=== PATIENT | male | born 1950 | race Caucasian/White ===

== ENCOUNTER 2021-12-08 17:22 | Inpatient (IN) | payer MEDICARE ==
[~2021-12-08] VITALS: Ht 188 cm; Wt 99.8 kg
[2021-12-08] MEDS ORDERED: LABETALOL HCL VIAL 20 MG/4 ML VIAL IV ONE (18:15)
[2021-12-08] MEDS ORDERED: ACETAMINOPHEN 325MG TABLET PO ONE (18:30)
[2021-12-08] MEDS ORDERED: LABETALOL 5MG/ML SYR 20 MG/4 ML SYRINGE IV NR (18:30)
[2021-12-08 18:42] LABS: BASOPHILS % 0.7 % (0.0-2.0); EOSINOPHILS % 1.4 % (0.0-5.0); HEMATOCRIT. 46.4 % (42.0-52.0); HEMOGLOBIN. 15.7 g/dL (14.0-18.0); LYMPHOCYTES % 16.9 % (20.0-50.0); MEAN CORPUSCULAR HEMOGLOBIN 28.4 pg (28.0-32.0); MEAN CORPUSCULAR VOLUME 84.3 fL (80.0-94.0); MONOCYTES % 5.8 % (2.0-8.0); NEUTROPHILS % 75.2 % (40.0-76.0); PLATELET 145 x1000/uL (130-400); RED BLOOD CELL COUNT 5.51 mill/uL (4.7-6.1); RED CELL DISTRIBUTION WIDTH 14.5 % (11.6-14.6)
[2021-12-08 18:51] LABS: CHLORIDE 111 mEq/L (98-107)
[2021-12-08] MEDS ORDERED: HYDRALAZINE 20MG/ML VIAL IV ONE (23:15)
[2021-12-08] MEDS: HYDRALAZINE 20MG/ML VIAL IV SCH (23:32)
[2021-12-09] MEDS ORDERED: HYDRALAZINE 20MG/ML VIAL IV SCH
[2021-12-09] MEDS: HYDRALAZINE 20MG/ML VIAL IV SCH ×3 (05:47→17:18)
[2021-12-09] MEDS ORDERED: NITROGLYCERIN 0.4MG TABLET SL SL PRN (07:00)
[2021-12-09] MEDS ORDERED: IPRATROPIUM/ALBUTEROL 0.5-3(2.5)MG/3ML NEB NEB PRN (07:15)
[2021-12-09] MEDS ORDERED: GUAIFENESIN 200MG/10ML SUGAR FREE UDC PO PRN (07:15)
[2021-12-09] MEDS ORDERED: MAGNESIUM/ALUMINUM HYDROXIDE/SIMETHICONE 30ML UDC PO PRN (07:15)
[2021-12-09] MEDS ORDERED: ONDANSETRON HCL 4MG/2ML INJ IV PRN (07:15)
[2021-12-09] MEDS ORDERED: ACETAMINOPHEN 325MG TABLET PO PRN ×2 (07:15)
[2021-12-09] MEDS ORDERED: DOCUSATE SODIUM 100MG CAPSULE PO PRN (07:15)
[2021-12-09] MEDS: CLONIDINE 0.1MG TABLET PO PRN (07:33)
[2021-12-09] MEDS: AMLODIPINE 10MG TABLET PO SCH ×2 (07:34→09:00)
[2021-12-09] MEDS: NITROGLYCERIN OINT 1GM/INCH UDPKT TD SCH ×3 (08:10→21:14)
[2021-12-09] MEDS: ASPIRIN 325MG EC TABLET PO SCH (08:14)
[2021-12-09] MEDS: ENOXAPARIN 40MG/0.4ML SYR SUBCUT SCH (08:14)
[2021-12-09] MEDS: FAMOTIDINE 20MG TABLET PO SCH ×2 (08:15→21:13)
[2021-12-09] MEDS: LISINOPRIL 20MG TABLET PO SCH ×2 (08:15→21:13)
[2021-12-09 09:08] LABS: HDL CHOLESTEROL 50 mg/dL (40-59)
[2021-12-09 09:12] LABS: ETHANOL BLOOD < 10 mg/dL; LDL CHOLESTEROL 105 mg/dL (5-100); T4 FREE 0.98 ng/dL (0.76-1.46); TOTAL IRON BINDING CAPACITY 301 ug/dL (250-450)
[2021-12-09 10:43] VITALS: BP 144/98
[2021-12-09 12:00] VITALS: BP 108/58
[2021-12-09] MEDS: KETOROLAC 15MG/ML VIAL IV PRN (12:28)
[2021-12-09] MEDS: HYDRALAZINE HCL 50MG TABLET PO SCH ×2 (14:00→21:13)
[2021-12-09 16:11] VITALS: BP 111/71
[2021-12-09 17:14] LABS: *AMPHETAMINES SCREEN URINE NEGATIVE (NEGATIVE); *BARBITURATES SCREEN URINE NEGATIVE (NEGATIVE); *BENZODIAZEPINES SCREEN URINE NEGATIVE (NEGATIVE); *COCAINE SCREEN URINE NEGATIVE (NEGATIVE); CANNABINOID URINE SCREEN NEGATIVE (NEGATIVE); METHADONE URINE SCREEN NEGATIVE (NEGATIVE); OPIATES URINE SCREEN NEGATIVE (NEGATIVE); PHENCYCLIDINE URINE SCREEN NEGATIVE (NEGATIVE)
[2021-12-09 17:52] LABS: CREATINE KINASE MB FRACTION 2.8 ng/mL (0.5-3.6)
[2021-12-09 20:00] VITALS: BP 126/55
[2021-12-09] MEDS ORDERED: ZOLPIDEM TARTRATE 5MG TABLET PO PRN (21:00)
[2021-12-10] VITALS: BP 127/79
[2021-12-10 00:25] LABS: CREATINE KINASE MB FRACTION 3.3 ng/mL (0.5-3.6)
[2021-12-10 04:00] VITALS: BP 146/89
[2021-12-10] MEDS: NITROGLYCERIN OINT 1GM/INCH UDPKT TD SCH ×3 (06:01→21:49)
[2021-12-10] MEDS: HYDRALAZINE HCL 50MG TABLET PO SCH ×3 (06:01→21:49)
[2021-12-10 06:35] LABS: BASOPHILS % 0.5 % (0.0-2.0); HEMATOCRIT. 43.6 % (42.0-52.0); HEMOGLOBIN. 14.7 g/dL (14.0-18.0); LYMPHOCYTES % 13.5 % (20.0-50.0); MEAN CORPUSCULAR HEMOGLOBIN 28.2 pg (28.0-32.0); MEAN CORPUSCULAR VOLUME 83.8 fL (80.0-94.0); MEAN PLATELET VOLUME 8.2 fl (7.4-10.4); MONOCYTES % 8.9 % (2.0-8.0); NEUTROPHILS % 76.1 % (40.0-76.0); PLATELET 139 x1000/uL (130-400); RED CELL DISTRIBUTION WIDTH 14.7 % (11.6-14.6)
[2021-12-10 07:11] LABS: CHLORIDE 110 mEq/L (98-107)
[2021-12-10 07:19] LABS: PHOSPHORUS 3.5 mg/dL (2.5-4.9)
[2021-12-10 08:00] VITALS: BP 165/94
[2021-12-10] MEDS: KETOROLAC 15MG/ML VIAL IV PRN ×3 (09:10→21:50)
[2021-12-10] MEDS: ENOXAPARIN 40MG/0.4ML SYR SUBCUT SCH (09:10)
[2021-12-10] MEDS: ASPIRIN 325MG EC TABLET PO SCH (09:11)
[2021-12-10] MEDS: LISINOPRIL 20MG TABLET PO SCH ×2 (09:11→20:39)
[2021-12-10] MEDS: AMLODIPINE 10MG TABLET PO SCH (09:11)
[2021-12-10] MEDS: FAMOTIDINE 20MG TABLET PO SCH ×2 (09:11→20:39)
[2021-12-10 11:31] VITALS: BP 120/69
[2021-12-10 16:01] VITALS: BP 113/64
[2021-12-10 20:00] VITALS: BP 177/109
[2021-12-10] MEDS: CLONIDINE 0.1MG TABLET PO PRN (20:39)
[2021-12-11] VITALS (7 sets, daily range): BP systolic 99–159; BP diastolic 54–106
[2021-12-11] MEDS: HYDRALAZINE HCL 50MG TABLET PO SCH ×3 (04:53→22:00)
[2021-12-11] MEDS: NITROGLYCERIN OINT 1GM/INCH UDPKT TD SCH ×3 (04:53→22:47)
[2021-12-11] MEDS: CLONIDINE 0.1MG TABLET PO PRN (05:50)
[2021-12-11] MEDS: LISINOPRIL 20MG TABLET PO SCH (09:23)
[2021-12-11] MEDS: ASPIRIN 325MG EC TABLET PO SCH (09:23)
[2021-12-11] MEDS: AMLODIPINE 10MG TABLET PO SCH (09:23)
[2021-12-11] MEDS: FAMOTIDINE 20MG TABLET PO SCH (09:23)
[2021-12-11] MEDS: ENOXAPARIN 40MG/0.4ML SYR SUBCUT SCH (09:26)
[2021-12-12] VITALS: BP 138/84
[2021-12-12] MEDS: LISINOPRIL 20MG TABLET PO SCH ×2 (02:40→09:00)
[2021-12-12 04:00] VITALS: BP 143/76
[2021-12-12] MEDS: NITROGLYCERIN OINT 1GM/INCH UDPKT TD SCH ×2 (06:00→15:01)
[2021-12-12] MEDS: HYDRALAZINE HCL 50MG TABLET PO SCH ×2 (06:00→15:01)
[2021-12-12 08:02] VITALS: BP 140/87
[2021-12-12] MEDS ORDERED: FAMOTIDINE 20MG TABLET PO SCH (09:00)
[2021-12-12] MEDS: AMLODIPINE 10MG TABLET PO SCH (09:01)
[2021-12-12] MEDS: ENOXAPARIN 40MG/0.4ML SYR SUBCUT SCH (09:01)
[2021-12-12] MEDS: ASPIRIN 325MG EC TABLET PO SCH (09:03)
[2021-12-12 12:00] VITALS: BP 127/64
[2021-12-13 04:50] LABS: VITAMIN B12 SERUM 335 pg/mL (211-911)
== END 2021-12-12 16:48 | DRG 91 ==
LOC: ER 17:22 → 6WST 12-09 04:45 → SUPCPDRO 12-09 07:08 → 6WST 12-10 12:28
PROVIDERS: ADMIT Internal Medicine; ATTEND Internal Medicine
DX: G92.8 Other toxic encephalopathy (principal); N17.0 Acute kidney failure with tubular necrosis; I16.1 Hypertensive emergency; N18.9 Chronic kidney disease, unspecified; I12.9 Hypertensive chronic kidney disease with stage 1 through stage 4 chronic kidney disease, or unspecified chronic kidney disease; K21.9 Gastro-esophageal reflux disease without esophagitis
CPT/HCPCS: 36415; 71045; 76770; 80053; 80061; 80305; 80320; 82550; 82553; 82607; 82746; 83036; 83540; 83550; 83735; 83880; 84100; 84439; 84443; 84484; 85025; 93005; 93306; 93971; 97162; 97166; 99285; C1893; J0360; J1650; J1885; J3490; G0480

== ENCOUNTER 2022-04-15 09:49 | Inpatient (IN) | payer MEDICARE, OTHER, MEDICAID ==
[~2022-04-15] VITALS: Ht 165.1 cm; Wt 90.7 kg
[2022-04-15 11:01] LABS: HEMATOCRIT. 46.7 % (42.0-52.0); HEMOGLOBIN. 15.4 g/dL (14.0-18.0); MEAN CORPUSCULAR VOLUME 85.2 fL (80.0-94.0); PLATELET 177 x1000/uL (130-400); RED BLOOD CELL COUNT 5.48 mill/uL (4.7-6.1); RED CELL DISTRIBUTION WIDTH 15.5 % (11.6-14.6)
[2022-04-15 11:05] LABS: CHLORIDE 120 mEq/L (98-107)
[2022-04-15] MEDS ORDERED: SODIUM CHLORIDE 0.9% 1,000 ML IV ONE (11:30)
[2022-04-15 11:38] LABS: PLATELET ESTIMATE NORMAL
[2022-04-15 11:52] LABS: CLARITY URINE CLEAR (CLEAR); COLOR URINE YELLOW (YELLOW); KETONES URINE TRACE (NEGATIVE); LEUKOCYTE ESTERASE URINE 1+ (NEGATIVE); NITRITE URINE NEGATIVE (NEGATIVE); OCCULT BLOOD URINE 2+ (NEGATIVE); PROTEIN URINE TRACE (NEGATIVE); SPECIFIC GRAVITY URINE 1.014 (1.005-1.030)
[2022-04-15] MEDS ORDERED: GUAIFENESIN 200MG/10ML SUGAR FREE UDC PO PRN (16:00)
[2022-04-15] MEDS ORDERED: ONDANSETRON HCL 4MG/2ML INJ IV PRN (16:00)
[2022-04-15] MEDS ORDERED: ACETAMINOPHEN 325MG TABLET PO PRN (16:00)
[2022-04-15] MEDS ORDERED: CLONIDINE 0.1MG TABLET PO PRN (16:00)
[2022-04-15] MEDS ORDERED: IPRATROPIUM/ALBUTEROL 0.5-3(2.5)MG/3ML NEB NEB PRN (16:00)
[2022-04-15] MEDS ORDERED: LORAZEPAM 2MG/ML CPJ IV PRN (16:00)
[2022-04-15] MEDS ORDERED: DEXT 5%/0.45% NACL 500ML 500 ML IV ONE (17:45)
[2022-04-15] MEDS ORDERED: DEXTROSE 50% WATER 50ML SYRINGE IV PRN (18:15)
[2022-04-15 18:18] LABS: BG BASE EXCESS -11.6 mmol/L (-2.0-2.0); BG CARBOXYHEMOGLOBIN 0.8 % (0.5-1.5); BG DEOXYHEMOGLOBIN 3.5 % (0.0-5.0); BG FRACTION INSPIRED OXYGEN 21; BG HCO3 ACT 11.8 mmol/L (22.0-26.0); BG METHEMOGLOBIN 0.2 % (0.0-1.5); BG OXYGEN SATURATION 96.5 % (92.0-98.5); BG OXYHEMOGLOBIN 95.5 % (94.0-97.0); BG PCO2 22.4 mmHg (35.0-45.0); BG PH 7.339 (7.350-7.450); BG PO2 84.7 mmHg (75.0-100.0); BG SAMPLE SITE RIGHT BRACHIAL; BG TOTAL HEMOGLOBIN 15.7 g/dL (12.0-18.0); BG VENT MODE ROOM AIR
[2022-04-15] MEDS ORDERED: PIPERACILLIN/TAZ 3.375G PREMIX 50 ML IV NR (18:30)
[2022-04-15 19:58] LABS: PROSTRATE SPECIFIC AG TOTAL 6.96 ng/mL (0.0-4.0)
[2022-04-15 20:10] LABS: HEPATITIS B SURFACE ANTIGEN NEGATIVE; VITAMIN B12 SERUM 697 pg/mL (211-911)
[2022-04-15] MEDS: BLOOD SUGAR DIAGNOSTIC STRIP TEST SCH ×2 (20:14→22:18)
[2022-04-15] MEDS: INSULIN LISPRO 100 UNITS/ML SUBCUT SCH ×2 (20:14→22:19)
[2022-04-15] MEDS: HEPARIN 5000 UNITS/ML VIAL SUBCUT SCH (22:20)
[2022-04-15 23:12] LABS: CREATINE KINASE 1683 IU/L (39-308)
[2022-04-15] MEDS: LORAZEPAM 2MG/ML CPJ IV PRN (23:27)
[2022-04-16] MEDS ORDERED: DEXT 5%/0.45% NACL 1000ML IV SCH (03:15)
[2022-04-16] MEDS: LORAZEPAM 2MG/ML CPJ IV PRN (03:42)
[2022-04-16 04:25] VITALS: BP 149/83
[2022-04-16] MEDS: BLOOD SUGAR DIAGNOSTIC STRIP TEST SCH ×4 (06:02→20:39)
[2022-04-16 08:00] VITALS: BP 149/98
[2022-04-16] MEDS: HEPARIN 5000 UNITS/ML VIAL SUBCUT SCH ×2 (08:10→21:05)
[2022-04-16] MEDS: DEXT 5%/0.45% NACL 1000ML IV SCH ×3 (08:10→22:46)
[2022-04-16] MEDS: INSULIN LISPRO 100 UNITS/ML SUBCUT SCH ×4 (08:10→20:39)
[2022-04-16] MEDS: SODIUM BICARBONATE 650 MG TABLET PO SCH ×3 (08:11→17:00)
[2022-04-16] MEDS: TAMSULOSIN HCL 0.4MG SR CAPSULE PO SCH ×2 (08:11→09:00)
[2022-04-16 08:31] LABS: *AMPHETAMINES SCREEN URINE NEGATIVE (NEGATIVE); *BARBITURATES SCREEN URINE NEGATIVE (NEGATIVE); *BENZODIAZEPINES SCREEN URINE PRESUMTIVE POSITIVE (NEGATIVE); *COCAINE SCREEN URINE NEGATIVE (NEGATIVE); CANNABINOID URINE SCREEN NEGATIVE (NEGATIVE); METHADONE URINE SCREEN NEGATIVE (NEGATIVE); OPIATES URINE SCREEN PRESUMTIVE POSITIVE (NEGATIVE); PHENCYCLIDINE URINE SCREEN NEGATIVE (NEGATIVE)
[2022-04-16] MEDS ORDERED: PIPERACILLIN/TAZOBACTAM 3.375 G in DEXTROSE 5% WATER 50 ML IV SCH (09:00)
[2022-04-16 09:49] LABS: HEMATOCRIT. 45.6 % (42.0-52.0); MEAN CORPUSCULAR HEMOGLOBIN 27.8 pg (28.0-32.0); MEAN CORPUSCULAR VOLUME 84.3 fL (80.0-94.0); MEAN PLATELET VOLUME 9.2 fl (7.4-10.4); PLATELET 146 x1000/uL (130-400); RED BLOOD CELL COUNT 5.41 mill/uL (4.7-6.1); RED CELL DISTRIBUTION WIDTH 15.4 % (11.6-14.6)
[2022-04-16 09:56] LABS: CHLORIDE 127 mEq/L (98-107)
[2022-04-16 10:07] LABS: T4 FREE 0.91 ng/dL (0.76-1.46)
[2022-04-16 10:15] LABS: CREATINE KINASE 1501 IU/L (39-308)
[2022-04-16] MEDS: PIPERACILLIN/TAZOBACTAM 3.375 G in DEXTROSE 5% WATER 50 ML IV SCH ×2 (10:23→21:04)
[2022-04-16 12:00] VITALS: BP 129/78
[2022-04-16 13:07] LABS: PLATELET ESTIMATE NORMAL
[2022-04-16 16:00] VITALS: BP 142/103
[2022-04-16] MEDS ORDERED: IPRATROPIUM BROMIDE (0.02%) 0.5MG/2.5ML NEB HHN PRN (16:00)
[2022-04-16] MEDS ORDERED: ALBUTEROL (0.083%) 2.5MG/3ML NEB HHN PRN (16:00)
[2022-04-16 20:39] VITALS: BP 142/92
[2022-04-17 00:45] VITALS: BP 158/95
[2022-04-17] MEDS: LORAZEPAM 2MG/ML CPJ IV PRN (01:28)
[2022-04-17] MEDS: POTASSIUM CHLORIDE INJ 10 MEQ in DEXTROSE 5% WATER 1,000 ML IV SCH ×4 (01:45→23:27)
[2022-04-17] MEDS ORDERED: DEXT 5% WATER + KCL 20MEQ/L 1,000 ML IV SCH (01:45)
[2022-04-17] MEDS: HYDROCODONE/ACETAMINOPHEN 5/325MG TABLET PO PRN ×2 (02:34→09:55)
[2022-04-17 04:00] VITALS: BP 134/94
[2022-04-17 05:49] LABS: BASOPHILS % 0.5 % (0.0-2.0); EOSINOPHILS % 1.7 % (0.0-5.0); HEMOGLOBIN. 14.5 g/dL (14.0-18.0); LYMPHOCYTES % 8.8 % (20.0-50.0); MEAN CORPUSCULAR HEMOGLOBIN 28.2 pg (28.0-32.0); MEAN CORPUSCULAR VOLUME 87.3 fL (80.0-94.0); MEAN PLATELET VOLUME 9.4 fl (7.4-10.4); MONOCYTES % 9.1 % (2.0-8.0); NEUTROPHILS % 79.9 % (40.0-76.0); PLATELET 148 x1000/uL (130-400); RED BLOOD CELL COUNT 5.15 mill/uL (4.7-6.1); RED CELL DISTRIBUTION WIDTH 16.2 % (11.6-14.6)
[2022-04-17] MEDS: BLOOD SUGAR DIAGNOSTIC STRIP TEST SCH ×4 (06:40→20:46)
[2022-04-17] MEDS: INSULIN LISPRO 100 UNITS/ML SUBCUT SCH ×4 (07:25→20:46)
[2022-04-17 08:00] VITALS: BP 146/82
[2022-04-17 08:39] LABS: CHLORIDE 131 mEq/L (98-107)
[2022-04-17] MEDS: PIPERACILLIN/TAZOBACTAM 3.375 G in DEXTROSE 5% WATER 50 ML IV SCH ×2 (09:16→20:44)
[2022-04-17] MEDS: TAMSULOSIN HCL 0.4MG SR CAPSULE PO SCH (09:54)
[2022-04-17] MEDS: SODIUM BICARBONATE 650 MG TABLET PO SCH ×2 (09:54→17:31)
[2022-04-17] MEDS: HEPARIN 5000 UNITS/ML VIAL SUBCUT SCH ×2 (09:56→20:48)
[2022-04-17] MEDS ORDERED: MAGNESIUM 1 G PREMIX 100 ML IV ONE (10:30)
[2022-04-17 12:00] VITALS: BP 138/72
[2022-04-17] MEDS ORDERED: VANCOMYCIN 1500MG in DEXTROSE 5% WATER 250ML IV NR (12:00)
[2022-04-17 13:27] LABS: CREATINE KINASE 1650 IU/L (39-308)
[2022-04-17] MEDS: HALOPERIDOL LACTATE 5MG/ML VIAL IM SCH ×2 (14:19→20:46)
[2022-04-17] MEDS: ACETAMINOPHEN 325MG TABLET PO SCH ×2 (14:20→22:26)
[2022-04-17 16:00] VITALS: BP 135/89
[2022-04-17 20:00] VITALS: BP 147/75
[2022-04-18] VITALS: BP 121/77
[2022-04-18 04:00] VITALS: BP 115/77
[2022-04-18 05:45] LABS: CHLORIDE 127 mEq/L (98-107)
[2022-04-18 05:57] LABS: PHOSPHORUS 3.8 mg/dL (2.5-4.9)
[2022-04-18] MEDS: ACETAMINOPHEN 325MG TABLET PO SCH ×3 (06:00→21:43)
[2022-04-18 06:04] LABS: BASOPHILS % 0.6 % (0.0-2.0); EOSINOPHILS % 4.5 % (0.0-5.0); HEMATOCRIT. 43.5 % (42.0-52.0); HEMOGLOBIN. 14.4 g/dL (14.0-18.0); LYMPHOCYTES % 9.7 % (20.0-50.0); MEAN CORPUSCULAR HEMOGLOBIN 27.9 pg (28.0-32.0); MEAN CORPUSCULAR VOLUME 84.3 fL (80.0-94.0); MEAN PLATELET VOLUME 9.4 fl (7.4-10.4); MONOCYTES % 6.8 % (2.0-8.0); NEUTROPHILS % 78.4 % (40.0-76.0); PLATELET 119 x1000/uL (130-400); RED BLOOD CELL COUNT 5.16 mill/uL (4.7-6.1); RED CELL DISTRIBUTION WIDTH 15.7 % (11.6-14.6)
[2022-04-18] MEDS: POTASSIUM CHLORIDE INJ 10 MEQ in DEXTROSE 5% WATER 1,000 ML IV SCH ×3 (06:24→21:42)
[2022-04-18] MEDS: BLOOD SUGAR DIAGNOSTIC STRIP TEST SCH ×4 (06:26→21:00)
[2022-04-18 08:00] VITALS: BP 134/71
[2022-04-18] MEDS: HALOPERIDOL LACTATE 5MG/ML VIAL IM SCH (08:47)
[2022-04-18] MEDS: SODIUM BICARBONATE 650 MG TABLET PO SCH ×2 (08:48→18:23)
[2022-04-18] MEDS: HEPARIN 5000 UNITS/ML VIAL SUBCUT SCH ×2 (08:48→21:40)
[2022-04-18] MEDS: INSULIN LISPRO 100 UNITS/ML SUBCUT SCH ×4 (08:57→22:12)
[2022-04-18] MEDS: TAMSULOSIN HCL 0.4MG SR CAPSULE PO SCH (09:47)
[2022-04-18] MEDS: PIPERACILLIN/TAZOBACTAM 3.375 G in DEXTROSE 5% WATER 50 ML IV SCH ×2 (09:49→21:42)
[2022-04-18 12:00] VITALS: BP 104/62
[2022-04-18] MEDS ORDERED: TRAZ-251 PO (12:27)
[2022-04-18] MEDS ORDERED: GABA-529 PO (12:27)
[2022-04-18] MEDS ORDERED: HYDR-4135 PO (12:27)
[2022-04-18] MEDS ORDERED: QUET25TA36 PO (12:27)
[2022-04-18] MEDS ORDERED: LISI20TA31 PO (12:27)
[2022-04-18] MEDS ORDERED: TRAM50TA3 PO (12:27)
[2022-04-18] MEDS ORDERED: DOCU-138 PO (12:27)
[2022-04-18] MEDS ORDERED: AMLO10TA4 PO (12:27)
[2022-04-18] MEDS ORDERED: VANCOMYCIN 500MG PREMIX 100 ML IV NR (14:00)
[2022-04-18 14:09] LABS: MICROALBUMIN RANDOM URINE 24.4 ug/mL (Not Estab.)
[2022-04-18] MEDS ORDERED: NA PHOS,M-B/NA PHOS,DI-BA ENEMA 118ML PR NR (15:15)
[2022-04-18] MEDS ORDERED: HALOPERIDOL LACTATE 5MG/ML VIAL IM NR (15:15)
[2022-04-18] MEDS ORDERED: FUROSEMIDE 20MG/2ML VIAL IVP NR (18:45)
[2022-04-18 20:00] VITALS: BP 132/61
[2022-04-18] MEDS ORDERED: ASPIRIN 300MG SUPP PR NR (21:00)
[2022-04-18] MEDS ORDERED: HALOPERIDOL LACTATE 5MG/ML VIAL IM PRN (21:00)
[2022-04-18] MEDS: FAMOTIDINE 20MG TABLET PO SCH (21:43)
[2022-04-18] MEDS: ATORVASTATIN CALCIUM 40MG TABLET PO SCH (22:02)
[2022-04-18] MEDS ORDERED: THIAMINE HCL 100 MG in SODIUM CHLORIDE 0.9% 49 ML IV NR (23:00)
[2022-04-19] VITALS: BP 104/75
[2022-04-19] MEDS: POTASSIUM CHLORIDE INJ 10 MEQ in DEXTROSE 5% WATER 1,000 ML IV SCH ×2 (01:38→10:50)
[2022-04-19 04:00] VITALS: BP 113/76
[2022-04-19] MEDS: BLOOD SUGAR DIAGNOSTIC STRIP TEST SCH ×4 (05:37→21:07)
[2022-04-19] MEDS: ACETAMINOPHEN 325MG TABLET PO SCH (05:37)
[2022-04-19 06:51] LABS: BASOPHILS % 0.6 % (0.0-2.0); EOSINOPHILS % 6.3 % (0.0-5.0); HEMATOCRIT. 52.5 % (42.0-52.0); HEMOGLOBIN. 16.6 g/dL (14.0-18.0); LYMPHOCYTES % 9.8 % (20.0-50.0); MEAN CORPUSCULAR HEMOGLOBIN 27.4 pg (28.0-32.0); MEAN CORPUSCULAR VOLUME 86.4 fL (80.0-94.0); MEAN PLATELET VOLUME 9.7 fl (7.4-10.4); MONOCYTES % 5.7 % (2.0-8.0); NEUTROPHILS % 77.6 % (40.0-76.0); PLATELET 79 x1000/uL (130-400); RED BLOOD CELL COUNT 6.07 mill/uL (4.7-6.1); RED CELL DISTRIBUTION WIDTH 15.8 % (11.6-14.6)
[2022-04-19 08:00] VITALS: BP 140/80
[2022-04-19] MEDS: INSULIN LISPRO 100 UNITS/ML SUBCUT SCH ×4 (08:10→21:00)
[2022-04-19] MEDS: SODIUM BICARBONATE 650 MG TABLET PO SCH ×2 (10:50→17:52)
[2022-04-19] MEDS: PIPERACILLIN/TAZOBACTAM 3.375 G in DEXTROSE 5% WATER 50 ML IV SCH (10:50)
[2022-04-19] MEDS: TAMSULOSIN HCL 0.4MG SR CAPSULE PO SCH (11:00)
[2022-04-19 12:00] VITALS: BP 146/83
[2022-04-19 16:00] VITALS: BP 96/62
[2022-04-19 20:00] VITALS: BP 135/64
[2022-04-19] MEDS ORDERED: FUROSEMIDE 20MG/2ML VIAL IVP NR (21:00)
[2022-04-19] MEDS: ATORVASTATIN CALCIUM 40MG TABLET PO SCH (21:04)
[2022-04-19] MEDS: FAMOTIDINE 20MG TABLET PO SCH (21:05)
[2022-04-19] MEDS: HEPARIN 5000 UNITS/ML VIAL SUBCUT SCH (21:06)
[2022-04-19] MEDS: ACETAMINOPHEN 325MG TABLET PO PRN (23:29)
[2022-04-20] VITALS: BP 137/78
[2022-04-20 04:00] VITALS: BP 130/78
[2022-04-20 06:08] LABS: HEMATOCRIT 40.5 % (42.0-52.0); HEMOGLOBIN 13.6 g/dL (14.0-18.0); MEAN CORPUSCULAR HEMOGLOBIN 28.7 pg (28.0-32.0); MEAN CORPUSCULAR VOLUME 85.3 fL (80.0-94.0); RED BLOOD CELL COUNT 4.75 mill/uL (4.7-6.1); RED CELL DISTRIBUTION WIDTH 15.3 % (11.6-14.6)
[2022-04-20] MEDS: BLOOD SUGAR DIAGNOSTIC STRIP TEST SCH ×4 (06:16→21:03)
[2022-04-20 06:42] LABS: PHOSPHORUS 3.8 mg/dL (2.5-4.9)
[2022-04-20 07:26] LABS: PLATELET 102 x1000/uL (130-400)
[2022-04-20] MEDS: INSULIN LISPRO 100 UNITS/ML SUBCUT SCH ×4 (08:10→21:03)
[2022-04-20] MEDS: POTASSIUM CHLORIDE INJ 10 MEQ in DEXTROSE 5% WATER 1,000 ML IV SCH ×4 (09:27→20:59)
[2022-04-20] MEDS: TAMSULOSIN HCL 0.4MG SR CAPSULE PO SCH (09:28)
[2022-04-20] MEDS: SODIUM BICARBONATE 650 MG TABLET PO SCH ×2 (09:28→17:53)
[2022-04-20] MEDS: HEPARIN 5000 UNITS/ML VIAL SUBCUT SCH ×2 (09:29→21:01)
[2022-04-20 20:00] VITALS: BP 113/69
[2022-04-20] MEDS: FAMOTIDINE 20MG TABLET PO SCH (21:00)
[2022-04-20] MEDS: ATORVASTATIN CALCIUM 40MG TABLET PO SCH (21:00)
[2022-04-20] MEDS ORDERED: FUROSEMIDE 20MG/2ML VIAL IVP NR (22:00)
[2022-04-21] VITALS: BP 112/75
[2022-04-21] MEDS: POTASSIUM CHLORIDE INJ 10 MEQ in DEXTROSE 5% WATER 1,000 ML IV SCH ×2 (02:25→23:08)
[2022-04-21 04:00] VITALS: BP 139/85
[2022-04-21 06:07] LABS: CHLORIDE 121 mEq/L (98-107)
[2022-04-21 06:08] LABS: HEMATOCRIT 43.6 % (42.0-52.0); HEMOGLOBIN 14.4 g/dL (14.0-18.0); MEAN CORPUSCULAR HEMOGLOBIN 28.2 pg (28.0-32.0); MEAN CORPUSCULAR VOLUME 85.2 fL (80.0-94.0); PLATELET 108 x1000/uL (130-400); RED BLOOD CELL COUNT 5.11 mill/uL (4.7-6.1); RED CELL DISTRIBUTION WIDTH 15.5 % (11.6-14.6)
[2022-04-21] MEDS: BLOOD SUGAR DIAGNOSTIC STRIP TEST SCH ×4 (07:45→21:31)
[2022-04-21 08:00] VITALS: BP 111/78
[2022-04-21] MEDS: TAMSULOSIN HCL 0.4MG SR CAPSULE PO SCH (09:00)
[2022-04-21] MEDS: HEPARIN 5000 UNITS/ML VIAL SUBCUT SCH ×2 (09:00→21:39)
[2022-04-21] MEDS: SODIUM BICARBONATE 650 MG TABLET PO SCH ×3 (09:40→17:46)
[2022-04-21] MEDS: INSULIN LISPRO 100 UNITS/ML SUBCUT SCH ×4 (09:47→21:00)
[2022-04-21 12:00] VITALS: BP 99/54
[2022-04-21 16:00] VITALS: BP 138/66
[2022-04-21 20:00] VITALS: BP 107/74
[2022-04-21] MEDS: DOXAZOSIN MESYLATE 2MG TABLET PO SCH (21:00)
[2022-04-21] MEDS: FAMOTIDINE 20MG TABLET PO SCH (21:00)
[2022-04-21] MEDS: ATORVASTATIN CALCIUM 40MG TABLET PO SCH (21:00)
[2022-04-22] VITALS: BP 109/52
[2022-04-22 04:00] VITALS: BP 107/53
[2022-04-22] MEDS: BLOOD SUGAR DIAGNOSTIC STRIP TEST SCH ×4 (05:36→20:31)
[2022-04-22] MEDS: INSULIN LISPRO 100 UNITS/ML SUBCUT SCH ×4 (07:53→20:31)
[2022-04-22 08:00] VITALS: BP 145/77
[2022-04-22] MEDS: HEPARIN 5000 UNITS/ML VIAL SUBCUT SCH ×2 (08:49→21:05)
[2022-04-22] MEDS: POTASSIUM CHLORIDE INJ 10 MEQ in DEXTROSE 5% WATER 1,000 ML IV SCH ×2 (08:49→18:32)
[2022-04-22 08:53] LABS: HEMATOCRIT 40.4 % (42.0-52.0); HEMOGLOBIN 13.6 g/dL (14.0-18.0); MEAN CORPUSCULAR HEMOGLOBIN 28.1 pg (28.0-32.0); MEAN CORPUSCULAR VOLUME 83.6 fL (80.0-94.0); PLATELET 109 x1000/uL (130-400); RED BLOOD CELL COUNT 4.83 mill/uL (4.7-6.1); RED CELL DISTRIBUTION WIDTH 14.9 % (11.6-14.6)
[2022-04-22] MEDS: ASPIRIN 81MG TABLET PO SCH ×2 (08:59→09:00)
[2022-04-22] MEDS: SODIUM BICARBONATE 650 MG TABLET PO SCH ×3 (08:59→17:00)
[2022-04-22] MEDS ORDERED: LIDOCAINE HCL/PF 1% 2ML VIAL ONE (09:12)
[2022-04-22 09:16] LABS: CHLORIDE 117 mEq/L (98-107)
[2022-04-22 09:49] LABS: BG BASE EXCESS -6.4 mmol/L (-2.0-2.0); BG CARBOXYHEMOGLOBIN 0.7 % (0.5-1.5); BG DEOXYHEMOGLOBIN 7.9 % (0.0-5.0); BG HCO3 ACT 15.3 mmol/L (22.0-26.0); BG METHEMOGLOBIN 0.7 % (0.0-1.5); BG OXYHEMOGLOBIN 90.7 % (94.0-97.0); BG PCO2 22.2 mmHg (35.0-45.0); BG PH 7.457 (7.350-7.450); BG PO2 59.2 mmHg (75.0-100.0); BG SAMPLE SITE RIGHT RADIAL; BG TOTAL HEMOGLOBIN 13.9 g/dL (12.0-18.0); BG VENT MODE ROOM AIR
[2022-04-22 12:00] VITALS: BP 129/84
[2022-04-22] MEDS: PIPERACILLIN/TAZOBACTAM 3.375 G in DEXTROSE 5% WATER 50 ML IV SCH ×2 (13:24→21:04)
[2022-04-22 16:00] VITALS: BP 132/76
[2022-04-22 20:00] VITALS: BP 153/81
[2022-04-22] MEDS: DOXAZOSIN MESYLATE 2MG TABLET PO SCH (21:00)
[2022-04-22] MEDS: ATORVASTATIN CALCIUM 40MG TABLET PO SCH (21:00)
[2022-04-22] MEDS: FAMOTIDINE 20MG TABLET PO SCH (21:00)
[2022-04-22] MEDS ORDERED: FUROSEMIDE 20MG/2ML VIAL IVP NR (23:00)
[2022-04-23] VITALS: BP 123/82
[2022-04-23 04:00] VITALS: BP 177/96
[2022-04-23] MEDS: POTASSIUM CHLORIDE INJ 10 MEQ in DEXTROSE 5% WATER 1,000 ML IV SCH ×2 (05:09→18:38)
[2022-04-23] MEDS: PIPERACILLIN/TAZOBACTAM 3.375 G in DEXTROSE 5% WATER 50 ML IV SCH ×3 (05:09→21:56)
[2022-04-23] MEDS: BLOOD SUGAR DIAGNOSTIC STRIP TEST SCH ×4 (06:43→21:00)
[2022-04-23 08:00] VITALS: BP 174/97
[2022-04-23 08:01] LABS: HEMATOCRIT 46.5 % (42.0-52.0); MEAN CORPUSCULAR HEMOGLOBIN 28.1 pg (28.0-32.0); MEAN CORPUSCULAR VOLUME 86.8 fL (80.0-94.0); PLATELET 121 x1000/uL (130-400); RED BLOOD CELL COUNT 5.36 mill/uL (4.7-6.1)
[2022-04-23] MEDS: INSULIN LISPRO 100 UNITS/ML SUBCUT SCH ×4 (08:10→21:00)
[2022-04-23] MEDS ORDERED: HYDRALAZINE 20MG/ML VIAL IV PRN (08:15)
[2022-04-23 08:35] LABS: CHLORIDE 116 mEq/L (98-107)
[2022-04-23] MEDS: ASPIRIN 81MG TABLET PO SCH (09:33)
[2022-04-23] MEDS: SODIUM BICARBONATE 650 MG TABLET PO SCH ×2 (09:33→17:00)
[2022-04-23] MEDS: HEPARIN 5000 UNITS/ML VIAL SUBCUT SCH (09:34)
[2022-04-23 12:00] VITALS: BP 156/96
[2022-04-23 16:00] VITALS: BP 110/65
[2022-04-23] MEDS ORDERED: METOCLOPRAMIDE HCL 10MG/2ML VIAL IV NR (16:30)
[2022-04-23 20:00] VITALS: BP 121/75
[2022-04-23] MEDS: ATORVASTATIN CALCIUM 40MG TABLET PO SCH (21:57)
[2022-04-23] MEDS: DOXAZOSIN MESYLATE 2MG TABLET PO SCH (21:58)
[2022-04-23] MEDS: FAMOTIDINE 20MG TABLET PO SCH (21:58)
[2022-04-23] MEDS: DEXTROSE 5% WATER 1,000 ML IV SCH (22:02)
[2022-04-24] VITALS: BP 117/68
[2022-04-24] MEDS ORDERED: IPRATROPIUM/ALBUTEROL 0.5-3(2.5)MG/3ML NEB HHN SCH
[2022-04-24 04:00] VITALS: BP 114/68
[2022-04-24 06:17] LABS: HEMATOCRIT. 39.7 % (42.0-52.0); HEMOGLOBIN. 13.5 g/dL (14.0-18.0); MEAN CORPUSCULAR HEMOGLOBIN 28.7 pg (28.0-32.0); MEAN CORPUSCULAR VOLUME 84.2 fL (80.0-94.0); MEAN PLATELET VOLUME 10.7 fl (7.4-10.4); PLATELET 142 x1000/uL (130-400); RED BLOOD CELL COUNT 4.71 mill/uL (4.7-6.1); RED CELL DISTRIBUTION WIDTH 14.8 % (11.6-14.6)
[2022-04-24] MEDS: PIPERACILLIN/TAZOBACTAM 3.375 G in DEXTROSE 5% WATER 50 ML IV SCH ×2 (06:57→14:06)
[2022-04-24] MEDS: BLOOD SUGAR DIAGNOSTIC STRIP TEST SCH ×4 (07:56→21:07)
[2022-04-24] MEDS: INSULIN LISPRO 100 UNITS/ML SUBCUT SCH ×4 (07:56→20:57)
[2022-04-24 08:00] VITALS: BP 132/84
[2022-04-24 08:07] LABS: CHLORIDE 116 mEq/L (98-107)
[2022-04-24] MEDS: IPRATROPIUM BROMIDE (0.02%) 0.5MG/2.5ML NEB HHN SCH ×3 (08:57→22:16)
[2022-04-24] MEDS: ALBUTEROL (0.083%) 2.5MG/3ML NEB HHN SCH ×3 (08:57→22:16)
[2022-04-24] MEDS: DEXTROSE 5% WATER 1,000 ML IV SCH ×2 (09:19→20:36)
[2022-04-24] MEDS: SODIUM BICARBONATE 650 MG TABLET PO SCH ×2 (09:22→16:43)
[2022-04-24] MEDS: HEPARIN 5000 UNITS/ML VIAL SUBCUT SCH ×2 (09:25→20:54)
[2022-04-24 10:51] LABS: PLATELET ESTIMATE NORMAL
[2022-04-24 12:00] VITALS: BP 118/84
[2022-04-24] MEDS ORDERED: ACETAMINOPHEN 325MG TABLET PO PRN (14:30)
[2022-04-24 16:00] VITALS: BP 120/57
[2022-04-24] MEDS ORDERED: FUROSEMIDE 20MG/2ML VIAL IV NR (19:28)
[2022-04-24 20:12] VITALS: BP 96/57
[2022-04-24] MEDS: FAMOTIDINE 20MG TABLET PO SCH (20:51)
[2022-04-24] MEDS: ATORVASTATIN CALCIUM 40MG TABLET PO SCH (20:51)
[2022-04-24] MEDS: DOXAZOSIN MESYLATE 2MG TABLET PO SCH (20:53)
[2022-04-24] MEDS ORDERED: PIPERACILLIN/TAZOBACTAM 3.375 G in DEXTROSE 5% WATER 50 ML IV SCH (23:00)
[2022-04-25] VITALS: BP 118/70
[2022-04-25] MEDS: ALBUTEROL (0.083%) 2.5MG/3ML NEB HHN SCH ×4 (03:22→19:55)
[2022-04-25] MEDS: IPRATROPIUM BROMIDE (0.02%) 0.5MG/2.5ML NEB HHN SCH ×4 (03:22→19:55)
[2022-04-25 04:00] VITALS: BP 91/61
[2022-04-25] MEDS: DEXTROSE 5% WATER 1,000 ML IV SCH ×2 (04:59→11:33)
[2022-04-25 06:11] LABS: HEMATOCRIT. 37.2 % (42.0-52.0); HEMOGLOBIN. 12.3 g/dL (14.0-18.0); MEAN CORPUSCULAR HEMOGLOBIN 27.9 pg (28.0-32.0); MEAN CORPUSCULAR VOLUME 84.1 fL (80.0-94.0); MEAN PLATELET VOLUME 10.4 fl (7.4-10.4); PLATELET 160 x1000/uL (130-400); RED BLOOD CELL COUNT 4.42 mill/uL (4.7-6.1); RED CELL DISTRIBUTION WIDTH 15.1 % (11.6-14.6)
[2022-04-25] MEDS: BLOOD SUGAR DIAGNOSTIC STRIP TEST SCH ×4 (07:33→20:01)
[2022-04-25 07:49] LABS: CHLORIDE 114 mEq/L (98-107)
[2022-04-25 08:00] VITALS: BP 120/91
[2022-04-25] MEDS ORDERED: DEXTROSE 5% IV SCH (09:00)
[2022-04-25] MEDS ORDERED: WATER IV SCH (09:00)
[2022-04-25] MEDS ORDERED: PIPERACILLIN IV SCH (09:00)
[2022-04-25] MEDS ORDERED: TAZOBACTAM IV SCH (09:00)
[2022-04-25] MEDS: ZINC SULFATE 220 MG ( 50 ) CAPSULE PO SCH (09:58)
[2022-04-25] MEDS: HEPARIN 5000 UNITS/ML VIAL SUBCUT SCH ×2 (09:58→20:29)
[2022-04-25] MEDS: ASCORBIC ACID 500 MG TABLET PO SCH (09:58)
[2022-04-25] MEDS: INSULIN LISPRO 100 UNITS/ML SUBCUT SCH ×4 (09:59→20:02)
[2022-04-25] MEDS: PIPERACILLIN/TAZOBACTAM 3.375 G in DEXTROSE 5% WATER 50 ML IV SCH ×2 (10:01→20:28)
[2022-04-25 12:00] VITALS: BP 118/79
[2022-04-25 14:24] LABS: PLATELET ESTIMATE NORMAL
[2022-04-25 16:00] VITALS: BP 121/78
[2022-04-25 20:00] VITALS: BP 135/77
[2022-04-25] MEDS: DOXAZOSIN MESYLATE 2MG TABLET PO SCH (20:28)
[2022-04-25] MEDS: ATORVASTATIN CALCIUM 40MG TABLET PO SCH (20:28)
[2022-04-25] MEDS: FAMOTIDINE 20MG TABLET PO SCH (20:28)
[2022-04-25] MEDS: POTASSIUM CHLORIDE INJ 10 MEQ in DEXTROSE 5% WATER 1,000 ML IV SCH (21:11)
[2022-04-25 21:27] LABS: CLARITY URINE TURBID (CLEAR); COLOR URINE YELLOW (YELLOW); KETONES URINE NEGATIVE (NEGATIVE); LEUKOCYTE ESTERASE URINE 1+ (NEGATIVE); NITRITE URINE NEGATIVE (NEGATIVE); OCCULT BLOOD URINE 2+ (NEGATIVE); PH URINE 5.5 (4.5-8.0); PROTEIN URINE 1+ (NEGATIVE); SPECIFIC GRAVITY URINE 1.015 (1.005-1.030); UROBILINOGEN URINE 0.2 E.U./dL (0.2-1.0)
[2022-04-26] VITALS (7 sets, daily range): BP systolic 125–158; BP diastolic 63–85
[2022-04-26] MEDS: IPRATROPIUM BROMIDE (0.02%) 0.5MG/2.5ML NEB HHN SCH ×4 (01:50→21:08)
[2022-04-26] MEDS: ALBUTEROL (0.083%) 2.5MG/3ML NEB HHN SCH ×4 (01:53→21:08)
[2022-04-26] MEDS: BLOOD SUGAR DIAGNOSTIC STRIP TEST SCH ×4 (06:44→21:00)
[2022-04-26 07:15] LABS: HEMATOCRIT. 35.3 % (42.0-52.0); HEMOGLOBIN. 11.9 g/dL (14.0-18.0); MEAN CORPUSCULAR HEMOGLOBIN 28.5 pg (28.0-32.0); MEAN CORPUSCULAR VOLUME 84.8 fL (80.0-94.0); MEAN PLATELET VOLUME 10.1 fl (7.4-10.4); PLATELET 189 x1000/uL (130-400); RED BLOOD CELL COUNT 4.16 mill/uL (4.7-6.1); RED CELL DISTRIBUTION WIDTH 15.2 % (11.6-14.6)
[2022-04-26 07:26] LABS: CHLORIDE 114 mEq/L (98-107)
[2022-04-26 07:36] LABS: PHOSPHORUS 3.8 mg/dL (2.5-4.9)
[2022-04-26] MEDS: POTASSIUM CHLORIDE INJ 10 MEQ in DEXTROSE 5% WATER 1,000 ML IV SCH ×3 (08:18→23:48)
[2022-04-26] MEDS: ASCORBIC ACID 500 MG TABLET PO SCH (08:19)
[2022-04-26] MEDS: ZINC SULFATE 220 MG ( 50 ) CAPSULE PO SCH (08:19)
[2022-04-26] MEDS: INSULIN LISPRO 100 UNITS/ML SUBCUT SCH ×4 (08:22→21:00)
[2022-04-26] MEDS: HEPARIN 5000 UNITS/ML VIAL SUBCUT SCH ×2 (08:24→21:00)
[2022-04-26] MEDS: PIPERACILLIN/TAZOBACTAM 3.375 G in DEXTROSE 5% WATER 50 ML IV SCH ×2 (08:24→20:54)
[2022-04-26 20:45] LABS: PLATELET ESTIMATE NORMAL
[2022-04-26] MEDS: DOXAZOSIN MESYLATE 2MG TABLET PO SCH (20:54)
[2022-04-26] MEDS: FAMOTIDINE 20MG TABLET PO SCH (20:54)
[2022-04-26] MEDS: ATORVASTATIN CALCIUM 40MG TABLET PO SCH (20:54)
[2022-04-27] MEDS: IPRATROPIUM BROMIDE (0.02%) 0.5MG/2.5ML NEB HHN SCH ×4 (01:28→22:10)
[2022-04-27] MEDS: ALBUTEROL (0.083%) 2.5MG/3ML NEB HHN SCH ×4 (01:28→22:10)
[2022-04-27] MEDS: POTASSIUM CHLORIDE INJ 10 MEQ in DEXTROSE 5% WATER 1,000 ML IV SCH ×3 (03:29→21:04)
[2022-04-27 03:55] VITALS: BP 113/77
[2022-04-27] MEDS: BLOOD SUGAR DIAGNOSTIC STRIP TEST SCH ×4 (05:22→20:19)
[2022-04-27] MEDS: INSULIN LISPRO 100 UNITS/ML SUBCUT SCH ×4 (05:27→21:42)
[2022-04-27 06:34] LABS: HEMATOCRIT. 33.4 % (42.0-52.0); HEMOGLOBIN. 11.2 g/dL (14.0-18.0); MEAN CORPUSCULAR HEMOGLOBIN 28.2 pg (28.0-32.0); MEAN CORPUSCULAR VOLUME 84.2 fL (80.0-94.0); MEAN PLATELET VOLUME 9.7 fl (7.4-10.4); PLATELET 171 x1000/uL (130-400); RED BLOOD CELL COUNT 3.96 mill/uL (4.7-6.1)
[2022-04-27 08:00] VITALS: BP 143/94
[2022-04-27] MEDS: PIPERACILLIN/TAZOBACTAM 3.375 G in DEXTROSE 5% WATER 50 ML IV SCH ×2 (08:52→21:05)
[2022-04-27] MEDS: ASCORBIC ACID 500 MG TABLET PO SCH (08:52)
[2022-04-27] MEDS: ZINC SULFATE 220 MG ( 50 ) CAPSULE PO SCH (08:52)
[2022-04-27] MEDS: HEPARIN 5000 UNITS/ML VIAL SUBCUT SCH ×2 (08:52→21:07)
[2022-04-27] MEDS ORDERED: LIDOCAINE HCL 1% 10 MG/ML 10ML VIAL ONE (11:47)
[2022-04-27 12:00] VITALS: BP 143/85
[2022-04-27] MEDS ORDERED: LACTULOSE 20G/30ML UDC PO NR (12:45)
[2022-04-27 13:18] LABS: PLATELET ESTIMATE NORMAL
[2022-04-27 16:00] VITALS: BP 151/90
[2022-04-27 16:13] LABS: GLUCOSE CSF 83 mg/dL (41-75)
[2022-04-27 20:00] VITALS: BP 154/78
[2022-04-27] MEDS: DOXAZOSIN MESYLATE 2MG TABLET PO SCH (21:05)
[2022-04-27] MEDS: FAMOTIDINE 20MG TABLET PO SCH (21:06)
[2022-04-27] MEDS: ATORVASTATIN CALCIUM 40MG TABLET PO SCH (21:06)
[2022-04-28] VITALS: BP 149/89
[2022-04-28] MEDS: ALBUTEROL (0.083%) 2.5MG/3ML NEB HHN SCH ×4 (02:54→21:00)
[2022-04-28] MEDS: IPRATROPIUM BROMIDE (0.02%) 0.5MG/2.5ML NEB HHN SCH ×4 (02:54→21:01)
[2022-04-28] MEDS: POTASSIUM CHLORIDE INJ 10 MEQ in DEXTROSE 5% WATER 1,000 ML IV SCH ×3 (03:33→18:36)
[2022-04-28 04:00] VITALS: BP 145/80
[2022-04-28 06:22] LABS: HEMATOCRIT. 35.2 % (42.0-52.0); HEMOGLOBIN. 11.5 g/dL (14.0-18.0); MEAN CORPUSCULAR HEMOGLOBIN 27.4 pg (28.0-32.0); MEAN CORPUSCULAR VOLUME 83.9 fL (80.0-94.0); MEAN PLATELET VOLUME 9.6 fl (7.4-10.4); PLATELET 178 x1000/uL (130-400); RED CELL DISTRIBUTION WIDTH 14.7 % (11.6-14.6)
[2022-04-28] MEDS: BLOOD SUGAR DIAGNOSTIC STRIP TEST SCH ×4 (06:51→21:10)
[2022-04-28] MEDS: INSULIN LISPRO 100 UNITS/ML SUBCUT SCH ×4 (07:49→21:00)
[2022-04-28 08:00] VITALS: BP 178/96
[2022-04-28] MEDS: PIPERACILLIN/TAZOBACTAM 3.375 G in DEXTROSE 5% WATER 50 ML IV SCH ×2 (09:15→21:09)
[2022-04-28] MEDS: HEPARIN 5000 UNITS/ML VIAL SUBCUT SCH ×2 (09:15→21:10)
[2022-04-28] MEDS: ZINC SULFATE 220 MG ( 50 ) CAPSULE PO SCH (09:16)
[2022-04-28] MEDS: ASCORBIC ACID 500 MG TABLET PO SCH (09:16)
[2022-04-28 12:00] VITALS: BP 146/89
[2022-04-28 12:08] LABS: PLATELET ESTIMATE NORMAL
[2022-04-28 16:00] VITALS: BP 167/97
[2022-04-28] MEDS: SODIUM CHLORIDE 0.45% 1,000 ML IV SCH (19:57)
[2022-04-28 20:00] VITALS: BP 122/77
[2022-04-28] MEDS: ATORVASTATIN CALCIUM 40MG TABLET PO SCH (21:08)
[2022-04-28] MEDS: DOXAZOSIN MESYLATE 2MG TABLET PO SCH (21:09)
[2022-04-28] MEDS: FAMOTIDINE 20MG TABLET PO SCH (21:09)
[2022-04-29] VITALS (7 sets, daily range): BP systolic 130–180; BP diastolic 61–95
[2022-04-29] MEDS: ACETAMINOPHEN 325MG TABLET PO PRN (00:37)
[2022-04-29] MEDS: IPRATROPIUM BROMIDE (0.02%) 0.5MG/2.5ML NEB HHN SCH (02:10)
[2022-04-29] MEDS: ALBUTEROL (0.083%) 2.5MG/3ML NEB HHN SCH (02:10)
[2022-04-29] MEDS: SODIUM CHLORIDE 0.45% 1,000 ML IV SCH ×3 (02:41→16:48)
[2022-04-29 06:48] LABS: HEMATOCRIT. 33.9 % (42.0-52.0); HEMOGLOBIN. 11.5 g/dL (14.0-18.0); MEAN CORPUSCULAR HEMOGLOBIN 28.3 pg (28.0-32.0); MEAN CORPUSCULAR VOLUME 83.4 fL (80.0-94.0); MEAN PLATELET VOLUME 9.5 fl (7.4-10.4); PLATELET 177 x1000/uL (130-400); RED BLOOD CELL COUNT 4.07 mill/uL (4.7-6.1); RED CELL DISTRIBUTION WIDTH 14.4 % (11.6-14.6)
[2022-04-29] MEDS: BLOOD SUGAR DIAGNOSTIC STRIP TEST SCH ×4 (06:58→21:16)
[2022-04-29] MEDS: INSULIN LISPRO 100 UNITS/ML SUBCUT SCH ×4 (08:41→21:00)
[2022-04-29] MEDS: HEPARIN 5000 UNITS/ML VIAL SUBCUT SCH ×2 (08:42→21:05)
[2022-04-29] MEDS: ZINC SULFATE 220 MG ( 50 ) CAPSULE PO SCH (08:42)
[2022-04-29] MEDS: ASCORBIC ACID 500 MG TABLET PO SCH (08:42)
[2022-04-29] MEDS: PIPERACILLIN/TAZOBACTAM 3.375 G in DEXTROSE 5% WATER 50 ML IV SCH ×2 (08:42→21:04)
[2022-04-29] MEDS ORDERED: FUROSEMIDE 40MG/4ML VIAL IVP NR (12:00)
[2022-04-29 15:44] LABS: PLATELET ESTIMATE NORMAL
[2022-04-29] MEDS: SODIUM CHLORIDE 0.9% 1,000 ML IV SCH (17:23)
[2022-04-29] MEDS: FAMOTIDINE 20MG TABLET PO SCH ×2 (21:00→21:05)
[2022-04-29] MEDS: ATORVASTATIN CALCIUM 40MG TABLET PO SCH ×2 (21:00→21:05)
[2022-04-29] MEDS: DOXAZOSIN MESYLATE 2MG TABLET PO SCH ×2 (21:00→21:05)
[2022-04-30 00:52] VITALS: BP 135/76
[2022-04-30 04:00] VITALS: BP_SYST 108; BP_SYST 160; BP_DIAS 70; BP_DIAS 80
[2022-04-30] MEDS: INSULIN LISPRO 100 UNITS/ML SUBCUT SCH ×4 (08:01→21:00)
[2022-04-30] MEDS: BLOOD SUGAR DIAGNOSTIC STRIP TEST SCH ×4 (08:01→21:00)
[2022-04-30 08:04] LABS: HEMATOCRIT. 33.7 % (42.0-52.0); HEMOGLOBIN. 11.4 g/dL (14.0-18.0); MEAN CORPUSCULAR HEMOGLOBIN 28.2 pg (28.0-32.0); MEAN PLATELET VOLUME 9.6 fl (7.4-10.4); PLATELET 198 x1000/uL (130-400); RED BLOOD CELL COUNT 4.06 mill/uL (4.7-6.1); RED CELL DISTRIBUTION WIDTH 14.4 % (11.6-14.6)
[2022-04-30 08:12] VITALS: BP 121/74
[2022-04-30 08:24] LABS: CHLORIDE 111 mEq/L (98-107)
[2022-04-30 08:37] LABS: PHOSPHORUS 3.9 mg/dL (2.5-4.9)
[2022-04-30] MEDS: ASCORBIC ACID 500 MG TABLET PO SCH (09:07)
[2022-04-30] MEDS: ZINC SULFATE 220 MG ( 50 ) CAPSULE PO SCH (09:07)
[2022-04-30] MEDS: ASPIRIN 81MG TABLET PO SCH (09:07)
[2022-04-30] MEDS: HEPARIN 5000 UNITS/ML VIAL SUBCUT SCH ×2 (09:13→21:36)
[2022-04-30] MEDS: SODIUM CHLORIDE 0.9% 1,000 ML IV SCH (11:34)
[2022-04-30 11:58] VITALS: BP 119/68
[2022-04-30] MEDS: PIPERACILLIN/TAZOBACTAM 3.375 G in DEXTROSE 5% WATER 50 ML IV SCH ×2 (13:23→21:35)
[2022-04-30 13:52] LABS: PLATELET ESTIMATE NORMAL
[2022-04-30 15:33] VITALS: BP 111/55
[2022-04-30 20:00] VITALS: BP 134/82
[2022-04-30] MEDS ORDERED: FUROSEMIDE 20MG TABLET NG NR (20:00)
[2022-04-30] MEDS: POTASSIUM CHLORIDE INJ 10 MEQ in SODIUM CHLORIDE 0.45% 1,000 ML IV SCH (21:35)
[2022-04-30] MEDS: FAMOTIDINE 20MG TABLET PO SCH (21:35)
[2022-04-30] MEDS: ATORVASTATIN CALCIUM 40MG TABLET PO SCH (21:35)
[2022-04-30] MEDS: DOXAZOSIN MESYLATE 2MG TABLET PO SCH (21:36)
[2022-05-01] VITALS: BP 148/79
[2022-05-01] MEDS: POTASSIUM CHLORIDE INJ 10 MEQ in SODIUM CHLORIDE 0.45% 1,000 ML IV SCH ×4 (02:33→22:18)
[2022-05-01 04:00] VITALS: BP 155/82
[2022-05-01 07:02] LABS: HEMATOCRIT. 31.4 % (42.0-52.0); HEMOGLOBIN. 10.5 g/dL (14.0-18.0); MEAN CORPUSCULAR VOLUME 83.5 fL (80.0-94.0); MEAN PLATELET VOLUME 9.3 fl (7.4-10.4); PLATELET 171 x1000/uL (130-400); RED BLOOD CELL COUNT 3.76 mill/uL (4.7-6.1); RED CELL DISTRIBUTION WIDTH 14.8 % (11.6-14.6)
[2022-05-01] MEDS: BLOOD SUGAR DIAGNOSTIC STRIP TEST SCH ×4 (07:07→21:00)
[2022-05-01 08:00] VITALS: BP 144/73
[2022-05-01] MEDS ORDERED: AMLODIPINE 5MG TABLET PO SCH (08:00)
[2022-05-01 08:04] LABS: CHLORIDE 113 mEq/L (98-107)
[2022-05-01] MEDS: INSULIN LISPRO 100 UNITS/ML SUBCUT SCH ×4 (08:10→21:00)
[2022-05-01 08:23] LABS: PHOSPHORUS 3.8 mg/dL (2.5-4.9)
[2022-05-01] MEDS: ASPIRIN 81MG TABLET PO SCH (08:48)
[2022-05-01] MEDS: ZINC SULFATE 220 MG ( 50 ) CAPSULE PO SCH (08:48)
[2022-05-01] MEDS: ASCORBIC ACID 500 MG TABLET PO SCH (08:57)
[2022-05-01] MEDS: HEPARIN 5000 UNITS/ML VIAL SUBCUT SCH ×2 (09:08→21:09)
[2022-05-01] MEDS: PIPERACILLIN/TAZOBACTAM 3.375 G in DEXTROSE 5% WATER 50 ML IV SCH ×2 (09:13→21:09)
[2022-05-01 12:00] VITALS: BP 112/61
[2022-05-01 16:00] VITALS: BP 128/61
[2022-05-01 20:00] VITALS: BP 137/62
[2022-05-01] MEDS: ATORVASTATIN CALCIUM 40MG TABLET PO SCH (21:09)
[2022-05-01] MEDS: DOXAZOSIN MESYLATE 2MG TABLET PO SCH (21:10)
[2022-05-01] MEDS: FAMOTIDINE 20MG TABLET PO SCH (21:10)
[2022-05-02] VITALS: BP 142/75
[2022-05-02 04:00] VITALS: BP 149/75
[2022-05-02] MEDS: POTASSIUM CHLORIDE INJ 10 MEQ in SODIUM CHLORIDE 0.45% 1,000 ML IV SCH ×3 (06:03→18:09)
[2022-05-02 06:18] LABS: HEMATOCRIT. 32.8 % (42.0-52.0); HEMOGLOBIN. 10.8 g/dL (14.0-18.0); MEAN CORPUSCULAR VOLUME 85.1 fL (80.0-94.0); MEAN PLATELET VOLUME 9.3 fl (7.4-10.4); PLATELET 162 x1000/uL (130-400); RED BLOOD CELL COUNT 3.85 mill/uL (4.7-6.1); RED CELL DISTRIBUTION WIDTH 14.6 % (11.6-14.6)
[2022-05-02] MEDS: BLOOD SUGAR DIAGNOSTIC STRIP TEST SCH ×4 (06:47→21:48)
[2022-05-02 08:00] VITALS: BP 140/71
[2022-05-02 08:19] LABS: CHLORIDE 111 mEq/L (98-107)
[2022-05-02 08:31] LABS: PHOSPHORUS 3.2 mg/dL (2.5-4.9)
[2022-05-02 09:11] LABS: PLATELET ESTIMATE NORMAL
[2022-05-02] MEDS: INSULIN LISPRO 100 UNITS/ML SUBCUT SCH ×4 (09:28→21:00)
[2022-05-02] MEDS: ZINC SULFATE 220 MG ( 50 ) CAPSULE PO SCH (09:33)
[2022-05-02] MEDS: AMLODIPINE 10MG TABLET PO SCH (09:35)
[2022-05-02] MEDS: ASPIRIN 81MG TABLET PO SCH (09:36)
[2022-05-02] MEDS: ASCORBIC ACID 500 MG TABLET PO SCH (09:38)
[2022-05-02] MEDS: HEPARIN 5000 UNITS/ML VIAL SUBCUT SCH ×2 (09:38→22:12)
[2022-05-02] MEDS: PIPERACILLIN/TAZOBACTAM 3.375 G in DEXTROSE 5% WATER 50 ML IV SCH ×2 (09:38→22:12)
[2022-05-02 12:00] VITALS: BP 135/70
[2022-05-02 12:18] LABS: PLATELET ESTIMATE NORMAL
[2022-05-02 16:00] VITALS: BP 148/89
[2022-05-02] MEDS: HYDRALAZINE HCL 10MG TABLET PO SCH ×2 (18:09→22:12)
[2022-05-02 20:00] VITALS: BP 147/74
[2022-05-02] MEDS: ATORVASTATIN CALCIUM 40MG TABLET PO SCH (22:12)
[2022-05-02] MEDS: FAMOTIDINE 20MG TABLET PO SCH (22:13)
[2022-05-02] MEDS: POTASSIUM CHLORIDE IV SCH (22:13)
[2022-05-02] MEDS: SODIUM BICARBONATE IV SCH (22:13)
[2022-05-02] MEDS: DOXAZOSIN MESYLATE 2MG TABLET PO SCH (22:13)
[2022-05-02] MEDS: [UNRECOGNIZED DRUG - OTHER] IV SCH (22:13)
[2022-05-03] VITALS: BP 114/69
[2022-05-03 04:00] VITALS: BP 129/81
[2022-05-03] MEDS: INSULIN LISPRO 100 UNITS/ML SUBCUT SCH ×4 (06:26→21:00)
[2022-05-03] MEDS: BLOOD SUGAR DIAGNOSTIC STRIP TEST SCH ×4 (06:26→21:36)
[2022-05-03 07:50] LABS: HEMATOCRIT. 31.7 % (42.0-52.0); HEMOGLOBIN. 10.7 g/dL (14.0-18.0); MEAN CORPUSCULAR HEMOGLOBIN 28.1 pg (28.0-32.0); MEAN CORPUSCULAR VOLUME 83.3 fL (80.0-94.0); MEAN PLATELET VOLUME 8.5 fl (7.4-10.4); PLATELET 186 x1000/uL (130-400); RED CELL DISTRIBUTION WIDTH 14.3 % (11.6-14.6)
[2022-05-03 08:00] VITALS: BP 154/95
[2022-05-03] MEDS: ZINC SULFATE 220 MG ( 50 ) CAPSULE PO SCH (09:17)
[2022-05-03] MEDS: HEPARIN 5000 UNITS/ML VIAL SUBCUT SCH ×2 (09:17→21:35)
[2022-05-03] MEDS: ASCORBIC ACID 500 MG TABLET PO SCH (09:17)
[2022-05-03] MEDS: AMLODIPINE 10MG TABLET PO SCH (09:24)
[2022-05-03] MEDS: HYDRALAZINE HCL 10MG TABLET PO SCH ×2 (09:24→21:34)
[2022-05-03] MEDS: ASPIRIN 81MG TABLET PO SCH (09:29)
[2022-05-03] MEDS: PIPERACILLIN/TAZOBACTAM 3.375 G in DEXTROSE 5% WATER 50 ML IV SCH ×2 (10:53→21:36)
[2022-05-03 13:28] LABS: PLATELET ESTIMATE NORMAL
[2022-05-03] MEDS: [UNRECOGNIZED DRUG - OTHER] IV SCH (14:10)
[2022-05-03] MEDS: SODIUM BICARBONATE IV SCH (14:10)
[2022-05-03] MEDS: POTASSIUM CHLORIDE IV SCH (14:10)
[2022-05-03 16:00] VITALS: BP 159/95
[2022-05-03] MEDS ORDERED: HYDRALAZINE 10 MG in SODIUM CHLORIDE 0.9% 49.5 ML IV PRN (16:15)
[2022-05-03 20:00] VITALS: BP 158/87
[2022-05-03] MEDS: DOXAZOSIN MESYLATE 2MG TABLET PO SCH (21:34)
[2022-05-03] MEDS: FAMOTIDINE 20MG TABLET PO SCH (21:35)
[2022-05-03] MEDS: ATORVASTATIN CALCIUM 40MG TABLET PO SCH (21:35)
[2022-05-03] MEDS: ACETAMINOPHEN 325MG TABLET PO PRN (21:50)
[2022-05-04] VITALS: BP 125/73
[2022-05-04] MEDS: [UNRECOGNIZED DRUG - OTHER] IV SCH ×2 (03:09→16:43)
[2022-05-04] MEDS: POTASSIUM CHLORIDE IV SCH ×2 (03:09→16:43)
[2022-05-04] MEDS: SODIUM BICARBONATE IV SCH ×2 (03:09→16:43)
[2022-05-04 04:00] VITALS: BP 129/71
[2022-05-04 07:15] LABS: HEMATOCRIT. 30.5 % (42.0-52.0); HEMOGLOBIN. 10.4 g/dL (14.0-18.0); MEAN CORPUSCULAR HEMOGLOBIN 28.1 pg (28.0-32.0); MEAN CORPUSCULAR VOLUME 82.6 fL (80.0-94.0); MEAN PLATELET VOLUME 8.7 fl (7.4-10.4); PLATELET 187 x1000/uL (130-400); RED BLOOD CELL COUNT 3.69 mill/uL (4.7-6.1); RED CELL DISTRIBUTION WIDTH 14.1 % (11.6-14.6)
[2022-05-04] MEDS: BLOOD SUGAR DIAGNOSTIC STRIP TEST SCH ×4 (07:20→20:57)
[2022-05-04] MEDS: INSULIN LISPRO 100 UNITS/ML SUBCUT SCH ×4 (07:50→20:57)
[2022-05-04 08:00] VITALS: BP 117/73
[2022-05-04 08:48] LABS: PLATELET ESTIMATE NORMAL
[2022-05-04] MEDS: ASPIRIN 81MG TABLET PO SCH (08:59)
[2022-05-04] MEDS: HYDRALAZINE HCL 10MG TABLET PO SCH ×2 (08:59→21:00)
[2022-05-04] MEDS: ZINC SULFATE 220 MG ( 50 ) CAPSULE PO SCH (08:59)
[2022-05-04] MEDS: AMLODIPINE 10MG TABLET PO SCH (09:00)
[2022-05-04] MEDS: HEPARIN 5000 UNITS/ML VIAL SUBCUT SCH ×2 (09:00→21:00)
[2022-05-04] MEDS: ASCORBIC ACID 500 MG TABLET PO SCH (09:00)
[2022-05-04] MEDS: PIPERACILLIN/TAZOBACTAM 3.375 G in DEXTROSE 5% WATER 50 ML IV SCH ×2 (09:27→20:57)
[2022-05-04 12:00] VITALS: BP 142/82
[2022-05-04 16:00] VITALS: BP 113/74
[2022-05-04] MEDS ORDERED: FUROSEMIDE 20MG TABLET NG NR (16:15)
[2022-05-04 20:00] VITALS: BP 171/96
[2022-05-04] MEDS ORDERED: HYDRALAZINE 20MG/ML VIAL IV ONE (20:45)
[2022-05-04] MEDS: FAMOTIDINE 20MG TABLET PO SCH (21:00)
[2022-05-04] MEDS: ATORVASTATIN CALCIUM 40MG TABLET PO SCH (21:00)
[2022-05-04] MEDS: DOXAZOSIN MESYLATE 2MG TABLET PO SCH (21:00)
[2022-05-05] VITALS: BP_SYST 153; BP_SYST 96; BP_DIAS 56; BP_DIAS 84
[2022-05-05 04:00] VITALS: BP 155/89
[2022-05-05 04:21] LABS: HEMATOCRIT. 33.8 % (42.0-52.0); MEAN CORPUSCULAR HEMOGLOBIN 27.1 pg (28.0-32.0); MEAN CORPUSCULAR VOLUME 83.5 fL (80.0-94.0); MEAN PLATELET VOLUME 8.6 fl (7.4-10.4); PLATELET 218 x1000/uL (130-400); RED BLOOD CELL COUNT 4.05 mill/uL (4.7-6.1); RED CELL DISTRIBUTION WIDTH 14.4 % (11.6-14.6)
[2022-05-05 04:25] LABS: INR 1.1; PROTHROMBIN TIME 11.5 sec (9.6-11.0)
[2022-05-05] MEDS: INSULIN LISPRO 100 UNITS/ML SUBCUT SCH ×4 (06:40→21:00)
[2022-05-05] MEDS: BLOOD SUGAR DIAGNOSTIC STRIP TEST SCH ×4 (06:40→21:21)
[2022-05-05] MEDS: POTASSIUM CHLORIDE IV SCH ×2 (06:47→21:57)
[2022-05-05] MEDS: SODIUM BICARBONATE IV SCH ×2 (06:47→21:57)
[2022-05-05] MEDS: [UNRECOGNIZED DRUG - OTHER] IV SCH ×2 (06:47→21:57)
[2022-05-05 08:00] VITALS: BP 153/88
[2022-05-05 08:53] LABS: PLATELET ESTIMATE NORMAL
[2022-05-05] MEDS: AMLODIPINE 10MG TABLET PO SCH (09:00)
[2022-05-05] MEDS: HYDRALAZINE HCL 10MG TABLET PO SCH ×2 (09:00→21:17)
[2022-05-05] MEDS: HEPARIN 5000 UNITS/ML VIAL SUBCUT SCH ×2 (09:00→21:25)
[2022-05-05] MEDS: ASCORBIC ACID 500 MG TABLET PO SCH (09:00)
[2022-05-05] MEDS: ZINC SULFATE 220 MG ( 50 ) CAPSULE PO SCH (09:00)
[2022-05-05] MEDS: PIPERACILLIN/TAZOBACTAM 3.375 G in DEXTROSE 5% WATER 50 ML IV SCH (09:28)
[2022-05-05] MEDS: DEXT 5%/0.9% NACL 1,000 ML IV SCH ×2 (09:29→10:01)
[2022-05-05] MEDS ORDERED: CEFAZOLIN 1000MG PREMIX 50 ML IV ONE (11:00)
[2022-05-05 12:00] VITALS: BP 148/80
[2022-05-05] MEDS ORDERED: LIDOCAINE HCL 1% 30ML VIAL (10MG/ML) ONE (12:34)
[2022-05-05] MEDS: ATORVASTATIN CALCIUM 40MG TABLET PO SCH (21:15)
[2022-05-05] MEDS: FAMOTIDINE 20MG TABLET PO SCH (21:20)
[2022-05-05] MEDS: DOXAZOSIN MESYLATE 2MG TABLET PO SCH (21:34)
[2022-05-06 04:00] VITALS: BP 163/95
[2022-05-06] MEDS: INSULIN LISPRO 100 UNITS/ML SUBCUT SCH ×3 (07:15→21:00)
[2022-05-06 08:00] VITALS: BP 173/99
[2022-05-06] MEDS: ZINC SULFATE 220 MG ( 50 ) CAPSULE PO SCH (09:14)
[2022-05-06] MEDS: HEPARIN 5000 UNITS/ML VIAL SUBCUT SCH ×2 (09:17→21:26)
[2022-05-06] MEDS: HYDRALAZINE HCL 10MG TABLET PO SCH ×2 (09:17→21:26)
[2022-05-06] MEDS: ASCORBIC ACID 500 MG TABLET PO SCH (09:17)
[2022-05-06] MEDS: AMLODIPINE 10MG TABLET PO SCH (09:17)
[2022-05-06 12:00] VITALS: BP 138/80
[2022-05-06] MEDS: [UNRECOGNIZED DRUG - OTHER] IV SCH (12:18)
[2022-05-06] MEDS: SODIUM BICARBONATE IV SCH ×2 (12:18→21:26)
[2022-05-06] MEDS: POTASSIUM CHLORIDE IV SCH ×2 (12:18→21:26)
[2022-05-06 16:00] VITALS: BP 138/84
[2022-05-06] MEDS: BLOOD SUGAR DIAGNOSTIC STRIP TEST SCH ×2 (16:18→21:27)
[2022-05-06 17:30] LABS: HEMATOCRIT 31.8 % (42.0-52.0); HEMOGLOBIN 10.6 g/dL (14.0-18.0); MEAN CORPUSCULAR HEMOGLOBIN 27.8 pg (28.0-32.0); MEAN CORPUSCULAR VOLUME 83.5 fL (80.0-94.0); PLATELET 221 x1000/uL (130-400); RED BLOOD CELL COUNT 3.81 mill/uL (4.7-6.1); RED CELL DISTRIBUTION WIDTH 14.3 % (11.6-14.6)
[2022-05-06 17:49] LABS: PHOSPHORUS 2.7 mg/dL (2.5-4.9)
[2022-05-06 20:00] VITALS: BP 130/76
[2022-05-06] MEDS: DEXTROSE 5% IV SCH (21:26)
[2022-05-06] MEDS: ATORVASTATIN CALCIUM 40MG TABLET PO SCH (21:26)
[2022-05-06] MEDS: FAMOTIDINE 20MG TABLET PO SCH (21:26)
[2022-05-06] MEDS: WATER IV SCH (21:26)
[2022-05-06] MEDS: DOXAZOSIN MESYLATE 2MG TABLET PO SCH (21:28)
[2022-05-07] VITALS: BP 134/71
[2022-05-07] MEDS: ACETAMINOPHEN 325MG TABLET PO PRN (00:55)
[2022-05-07 04:00] VITALS: BP 121/68
[2022-05-07 06:29] LABS: HEMATOCRIT. 29.1 % (42.0-52.0); HEMOGLOBIN. 9.7 g/dL (14.0-18.0); MEAN CORPUSCULAR HEMOGLOBIN 27.6 pg (28.0-32.0); MEAN CORPUSCULAR VOLUME 83.3 fL (80.0-94.0); MEAN PLATELET VOLUME 8.3 fl (7.4-10.4); PLATELET 208 x1000/uL (130-400); RED BLOOD CELL COUNT 3.49 mill/uL (4.7-6.1); RED CELL DISTRIBUTION WIDTH 14.4 % (11.6-14.6)
[2022-05-07] MEDS: BLOOD SUGAR DIAGNOSTIC STRIP TEST SCH ×4 (06:35→21:47)
[2022-05-07] MEDS: INSULIN LISPRO 100 UNITS/ML SUBCUT SCH ×4 (06:36→21:00)
[2022-05-07] MEDS: ZINC SULFATE 220 MG ( 50 ) CAPSULE PO SCH (09:18)
[2022-05-07] MEDS: AMLODIPINE 10MG TABLET PO SCH (09:19)
[2022-05-07] MEDS: HYDRALAZINE HCL 10MG TABLET PO SCH ×2 (09:19→21:39)
[2022-05-07] MEDS: ASCORBIC ACID 500 MG TABLET PO SCH (09:20)
[2022-05-07] MEDS: HEPARIN 5000 UNITS/ML VIAL SUBCUT SCH ×2 (09:20→21:40)
[2022-05-07 12:00] VITALS: BP 137/75
[2022-05-07 13:08] LABS: PLATELET ESTIMATE NORMAL
[2022-05-07] MEDS: WATER IV SCH (14:14)
[2022-05-07] MEDS: SODIUM BICARBONATE IV SCH (14:14)
[2022-05-07] MEDS: POTASSIUM CHLORIDE IV SCH (14:14)
[2022-05-07] MEDS: DEXTROSE 5% IV SCH (14:14)
[2022-05-07 16:00] VITALS: BP 146/75
[2022-05-07] MEDS ORDERED: LACTULOSE 20G/30ML UDC PO NR (17:45)
[2022-05-07] MEDS: SODIUM BICARBONATE 50 MEQ in DEXTROSE 5% WATER 1,000 ML IV SCH (18:00)
[2022-05-07 20:00] VITALS: BP 143/84
[2022-05-07] MEDS ORDERED: SODIUM POLYSTYRENE SULFONATE 15 G/60 ML BOT PO NR (20:00)
[2022-05-07] MEDS: ATORVASTATIN CALCIUM 40MG TABLET PO SCH (21:39)
[2022-05-07] MEDS: FAMOTIDINE 20MG TABLET PO SCH (21:40)
[2022-05-07] MEDS: DOXAZOSIN MESYLATE 2MG TABLET PO SCH (21:40)
[2022-05-08] VITALS: BP 116/74
[2022-05-08] MEDS: SODIUM BICARBONATE 50 MEQ in DEXTROSE 5% WATER 1,000 ML IV SCH ×3 (02:20→18:28)
[2022-05-08 04:00] VITALS: BP 107/71
[2022-05-08] MEDS: BLOOD SUGAR DIAGNOSTIC STRIP TEST SCH ×4 (06:17→21:00)
[2022-05-08] MEDS: INSULIN LISPRO 100 UNITS/ML SUBCUT SCH ×4 (06:17→21:00)
[2022-05-08 06:55] LABS: INR 1.1; PROTHROMBIN TIME 11.4 sec (9.6-11.0)
[2022-05-08 07:42] LABS: BASOPHILS % 0.7 % (0.0-2.0); EOSINOPHILS % 4.1 % (0.0-5.0); HEMATOCRIT. 30.5 % (42.0-52.0); HEMOGLOBIN. 10.2 g/dL (14.0-18.0); LYMPHOCYTES % 11.1 % (20.0-50.0); MEAN CORPUSCULAR HEMOGLOBIN 27.6 pg (28.0-32.0); MEAN CORPUSCULAR VOLUME 82.8 fL (80.0-94.0); NEUTROPHILS % 80.1 % (40.0-76.0); PLATELET 199 x1000/uL (130-400); RED BLOOD CELL COUNT 3.68 mill/uL (4.7-6.1); RED CELL DISTRIBUTION WIDTH 14.5 % (11.6-14.6)
[2022-05-08 08:00] VITALS: BP 137/83
[2022-05-08 08:34] LABS: CHLORIDE 112 mEq/L (98-107)
[2022-05-08] MEDS: HYDRALAZINE HCL 10MG TABLET PO SCH ×2 (08:50→23:17)
[2022-05-08] MEDS: ZINC SULFATE 220 MG ( 50 ) CAPSULE PO SCH (09:00)
[2022-05-08] MEDS: ASCORBIC ACID 500 MG TABLET PO SCH (09:00)
[2022-05-08] MEDS: AMLODIPINE 10MG TABLET PO SCH (09:00)
[2022-05-08] MEDS: HEPARIN 5000 UNITS/ML VIAL SUBCUT SCH ×2 (09:00→22:05)
[2022-05-08 12:00] VITALS: BP 135/70
[2022-05-08] MEDS ORDERED: CEFAZOLIN 1000MG PREMIX 50 ML IV NR (13:00)
[2022-05-08] MEDS ORDERED: PROPOFOL 200MG/20ML VIAL IV ONE ×2 (13:38→15:26)
[2022-05-08] MEDS ORDERED: LIDOCAINE HCL 1% 10 MG/ML 10ML VIAL ONE ×2 (13:38→15:26)
[2022-05-08] MEDS ORDERED: MIDAZOLAM HCL 2 MG/2 ML VIAL ONE ×2 (13:38→15:31)
[2022-05-08] MEDS ORDERED: EPHEDRINE SULFATE 50MG/ML VIAL ONE (13:41)
[2022-05-08] MEDS ORDERED: FENTANYL CITRATE/PF 50MCG/ML 2ML VIAL ONE (15:31)
[2022-05-08] MEDS ORDERED: MEPERIDINE HCL/PF 25MG/ML CPJ IV PRN (16:00)
[2022-05-08] MEDS ORDERED: LABETALOL 5MG/ML SYR 20 MG/4 ML SYRINGE IV PRN (16:00)
[2022-05-08] MEDS ORDERED: HYDROMORPHONE HCL/PF 2MG/ML CPJ IV PRN (16:00)
[2022-05-08] MEDS ORDERED: ONDANSETRON HCL 4MG/2ML INJ IV PRN (16:00)
[2022-05-08] MEDS: SUCRALFATE 1 G/10 ML UDC PO SCH ×2 (17:00→22:04)
[2022-05-08 17:15] VITALS: BP 145/89
[2022-05-08 20:00] VITALS: BP 150/89
[2022-05-08] MEDS: ATORVASTATIN CALCIUM 40MG TABLET PO SCH (22:04)
[2022-05-08] MEDS: DOXAZOSIN MESYLATE 2MG TABLET PO SCH (22:07)
[2022-05-08] MEDS ORDERED: HYDRALAZINE 20MG/ML VIAL IV PRN (22:30)
[2022-05-09] VITALS: BP 155/83
[2022-05-09] MEDS: SODIUM BICARBONATE 50 MEQ in DEXTROSE 5% WATER 1,000 ML IV SCH ×2 (02:35→21:05)
[2022-05-09 04:00] VITALS: BP 130/70
[2022-05-09] MEDS: METOCLOPRAMIDE HCL 10MG/2ML VIAL IV SCH ×3 (05:42→17:12)
[2022-05-09] MEDS: SUCRALFATE 1 G/10 ML UDC PO SCH ×4 (05:42→20:46)
[2022-05-09 06:09] LABS: HEMATOCRIT 29.5 % (42.0-52.0); HEMOGLOBIN 10.1 g/dL (14.0-18.0); MEAN CORPUSCULAR HEMOGLOBIN 28.2 pg (28.0-32.0); MEAN CORPUSCULAR VOLUME 82.6 fL (80.0-94.0); PLATELET 181 x1000/uL (130-400); RED BLOOD CELL COUNT 3.58 mill/uL (4.7-6.1); RED CELL DISTRIBUTION WIDTH 14.1 % (11.6-14.6)
[2022-05-09] MEDS: BLOOD SUGAR DIAGNOSTIC STRIP TEST SCH ×4 (06:56→21:00)
[2022-05-09] MEDS: INSULIN LISPRO 100 UNITS/ML SUBCUT SCH ×4 (06:56→21:00)
[2022-05-09 07:58] VITALS: BP 147/70
[2022-05-09] MEDS ORDERED: METO5VIA3 PO (08:16)
[2022-05-09] MEDS ORDERED: DOXA8TAB2 PO (08:16)
[2022-05-09] MEDS ORDERED: PANTOPRAZOLE SODIUM 40 MG/VIAL IV SCH (09:00)
[2022-05-09] MEDS: ASCORBIC ACID 500 MG TABLET PO SCH (09:01)
[2022-05-09] MEDS: ZINC SULFATE 220 MG ( 50 ) CAPSULE PO SCH (09:01)
[2022-05-09] MEDS: AMLODIPINE 10MG TABLET PO SCH (09:01)
[2022-05-09] MEDS: HYDRALAZINE HCL 10MG TABLET PO SCH ×2 (09:01→20:48)
[2022-05-09] MEDS: HEPARIN 5000 UNITS/ML VIAL SUBCUT SCH ×2 (09:02→20:46)
[2022-05-09 12:00] VITALS: BP 138/75
[2022-05-09 16:00] VITALS: BP 136/78
[2022-05-09 20:00] VITALS: BP 133/75
[2022-05-09] MEDS: DOXAZOSIN MESYLATE 2MG TABLET PO SCH (20:47)
[2022-05-09] MEDS: ATORVASTATIN CALCIUM 40MG TABLET PO SCH (20:48)
[2022-05-10] VITALS: BP 128/79
[2022-05-10] MEDS: METOCLOPRAMIDE HCL 10MG/2ML VIAL IV SCH ×2 (06:00)
[2022-05-10 06:43] LABS: HEMATOCRIT. 31.3 % (42.0-52.0); HEMOGLOBIN. 10.4 g/dL (14.0-18.0); MEAN CORPUSCULAR HEMOGLOBIN 27.9 pg (28.0-32.0); MEAN PLATELET VOLUME 8.1 fl (7.4-10.4); PLATELET 195 x1000/uL (130-400); RED BLOOD CELL COUNT 3.73 mill/uL (4.7-6.1); RED CELL DISTRIBUTION WIDTH 14.5 % (11.6-14.6)
[2022-05-10] MEDS: BLOOD SUGAR DIAGNOSTIC STRIP TEST SCH (06:45)
[2022-05-10] MEDS: SUCRALFATE 1 G/10 ML UDC PO SCH (06:45)
[2022-05-10] MEDS: INSULIN LISPRO 100 UNITS/ML SUBCUT SCH (07:15)
[2022-05-10 18:16] LABS: PLATELET ESTIMATE NORMAL
== END 2022-05-10 10:23 | DRG 871 ==
LOC: ER 10:00 → MICUSO 13:50 → EDBEDREQ 13:57 → EDBEDREQTM 13:57 → 7WST 04-16 04:18 → 6EST 05-03 15:59 → 5WST 05-05 02:06
PROVIDERS: ADMIT Internal Medicine; ATTEND Internal Medicine
PROC: 4A00X4Z Measurement of Central Nervous Electrical Activity, External Approach (ICD-10-PCS; 2022-04-19)
PROC: 009U3ZX Drainage of Spinal Canal, Percutaneous Approach, Diagnostic (ICD-10-PCS; principal; 2022-04-27)
PROC: B01B1ZZ Fluoroscopy of Spinal Cord using Low Osmolar Contrast (ICD-10-PCS; 2022-04-27)
PROC: 0Y9N3ZZ Drainage of Left Foot, Percutaneous Approach (ICD-10-PCS; 2022-04-28)
PROC: 0Y9M3ZZ Drainage of Right Foot, Percutaneous Approach (ICD-10-PCS; 2022-04-28)
PROC: 02HV33Z Insertion of Infusion Device into Superior Vena Cava, Percutaneous Approach (ICD-10-PCS; 2022-05-05)
PROC: B548ZZA Ultrasonography of Superior Vena Cava, Guidance (ICD-10-PCS; 2022-05-05)
PROC: 0DH63UZ Insertion of Feeding Device into Stomach, Percutaneous Approach (ICD-10-PCS; 2022-05-08)
PROC: 0DB68ZX Excision of Stomach, Via Natural or Artificial Opening Endoscopic, Diagnostic (ICD-10-PCS; 2022-05-08)
DX: A41.9 Sepsis, unspecified organism (principal); E43 Unspecified severe protein-calorie malnutrition; I63.81 Other cerebral infarction due to occlusion or stenosis of small artery; N17.0 Acute kidney failure with tubular necrosis; G92.8 Other toxic encephalopathy; J69.0 Pneumonitis due to inhalation of food and vomit; E87.0 Hyperosmolality and hypernatremia; I13.0 Hypertensive heart and chronic kidney disease with heart failure and stage 1 through stage 4 chronic kidney disease, or unspecified chronic kidney disease; N39.0 Urinary tract infection, site not specified; E87.20 Acidosis, unspecified; K22.10 Ulcer of esophagus without bleeding; M47.816 Spondylosis without myelopathy or radiculopathy, lumbar region; K57.30 Diverticulosis of large intestine without perforation or abscess without bleeding; K80.20 Calculus of gallbladder without cholecystitis without obstruction; N18.9 Chronic kidney disease, unspecified; E86.0 Dehydration; E86.1 Hypovolemia; E83.41 Hypermagnesemia; E88.09 Other disorders of plasma-protein metabolism, not elsewhere classified; I50.9 Heart failure, unspecified; E83.39 Other disorders of phosphorus metabolism; I73.9 Peripheral vascular disease, unspecified; K21.9 Gastro-esophageal reflux disease without esophagitis; R62.7 Adult failure to thrive; S90.821A Blister (nonthermal), right foot, initial encounter; S90.822A Blister (nonthermal), left foot, initial encounter; Z20.822 Contact with and (suspected) exposure to COVID-19; N28.1 Cyst of kidney, acquired; R13.10 Dysphagia, unspecified; R16.1 Splenomegaly, not elsewhere classified; R73.9 Hyperglycemia, unspecified; R74.01 Elevation of levels of liver transaminase levels; L89.156 Pressure-induced deep tissue damage of sacral region; D63.1 Anemia in chronic kidney disease; N40.1 Benign prostatic hyperplasia with lower urinary tract symptoms; Z86.73 Personal history of transient ischemic attack (TIA), and cerebral infarction without residual deficits; Z68.33 Body mass index [BMI] 33.0-33.9, adult; K29.70 Gastritis, unspecified, without bleeding; K29.80 Duodenitis without bleeding; K44.9 Diaphragmatic hernia without obstruction or gangrene; R65.20 Severe sepsis without septic shock
CPT/HCPCS: 36415; 36573; 36600; 62328; 70551; 71045; 73620; 74018; 74176; 76700; 76872; 78582; 80048; 80053; 80061; 80202; 80305; 81003; 82043; 82140; 82306; 82375; 82550; 82570; 82607; 82746; 82805; 82945; 82962; 83036; 83605; 83735; 83880; 83935; 84100; 84134; 84145; 84153; 84157; 84300; 84439; 84443; 84484; 85025; 85027; 85379; 86635; 86705; 86709; 86803; 87070; 87252; 87340; 87426; 87529; 87899; 88305; 92610; 93005; 93880; 93970; 94640; 95816; 97110; 97162; 97164; 97166; 97168; 97530; 99291; A6261; C1725; C1893; C9113; J0360; J0690; J1630; J1644; J1815; J1940; J2060; J2250; J2543; J2704; J2765; J3010; J3370; J3411; J3480; J3490; J7030; J7042; J7060; J7070; A4315; G0103